=== PATIENT | female | born 1960 | race Caucasian/White ===

== ENCOUNTER → 2016-05-18 | Outpatient (CLI) | payer BC | END | disposition home or self-care (01) | LOC: LABWHC1 15:06 | PROVIDERS: ATTEND Internal Medicine Endocrinology, Diabetes & Metabolism | DX: E89.0 Postprocedural hypothyroidism (principal) | CPT/HCPCS: 36415; 84443 ==

== ENCOUNTER → 2016-07-14 | Outpatient (CLI) | payer BC ==
--- NOTE | 2016-07-17 09:43 | MM ---
Reason for exam: screening (asymptomatic). Last mammogram was performed 1 year ago. History: Patient is nulliparous. Family history of breast cancer in aunt at age 45. Cancelled Left Mammotome of the left breast, July 02, 2006. Benign US left CoreBiopsy of the left breast, June 11, 2006. Benign ultrasound-guided core biopsy of the left breast, October 26, 2003. Benign stereotactic core biopsy of the left breast, September 22, 2002. 2 core biopsies of the left breast. Taking hormonal contraceptives for 8 years beginning at age 41. Physical Findings: A clinical breast exam by your physician is recommended on an annual basis and results should be correlated with mammographic findings. MG Screening Mammo w CAD Bilateral CC and MLO view(s) were taken. Prior study comparison: July 14, 2015, bilateral MG screening mammo w CAD. May 11, 2014, bilateral MG screening mammo w CAD. May 08, 2013, bilateral digital screening mammo w/CAD. There are scattered fibroglandular densities. Previous mammotome biopsy in the left breast x 3. Asymmetric breast tissue in the left breast is stable. There is no discrete abnormality. ASSESSMENT: Benign, BI-RAD 2 RECOMMENDATION: Routine screening mammogram of both breasts in 1 year.
== END | disposition home or self-care (01) ==
LOC: RADMAMWWP 13:50
PROVIDERS: ATTEND Obstetrics & Gynecology
DX: Z12.31 Encounter for screening mammogram for malignant neoplasm of breast (principal)

== ENCOUNTER → 2017-08-17 | Outpatient (CLI) | payer BC ==
--- NOTE | 2017-08-20 10:16 | MM ---
Reason for exam: screening (asymptomatic). Last mammogram was performed 1 year and 1 month ago. History: Patient is nulliparous. Family history of breast cancer in aunt at age 45. Cancelled Left Mammotome of the left breast, July 02, 2006. Benign US left CoreBiopsy of the left breast, June 11, 2006. Benign ultrasound-guided core biopsy of the left breast, October 26, 2003. Benign stereotactic core biopsy of the left breast, September 22, 2002. 2 core biopsies of the left breast. Taking hormonal contraceptives for 8 years beginning at age 41. Physical Findings: A clinical breast exam by your physician is recommended on an annual basis and results should be correlated with mammographic findings. MG Screening Mammo w CAD Bilateral CC and MLO view(s) were taken. Prior study comparison: July 14, 2016, bilateral MG screening mammo w CAD. July 14, 2015, bilateral MG screening mammo w CAD. The breast tissue is heterogeneously dense. This may lower the sensitivity of mammography. Previous mammotome biopsy in the left breast. There is no discrete abnormality. No significant changes when compared with prior studies. ASSESSMENT: Negative, BI-RAD 1 RECOMMENDATION: Routine screening mammogram of both breasts in 1 year.
== END | disposition home or self-care (01) ==
LOC: RADMAMWWP 13:47
PROVIDERS: ATTEND Obstetrics & Gynecology
DX: Z12.31 Encounter for screening mammogram for malignant neoplasm of breast (principal); Z80.3 Family history of malignant neoplasm of breast
CPT/HCPCS: 77067

== ENCOUNTER → 2018-06-20 | Outpatient (CLI) | payer BC | END | disposition home or self-care (01) | LOC: LABWHC1 13:16 | PROVIDERS: ATTEND Obstetrics & Gynecology | DX: Z78.0 Asymptomatic menopausal state (principal) | CPT/HCPCS: 36415; 82670; 83001 ==

== ENCOUNTER → 2018-08-19 | Outpatient (CLI) | payer BC ==
--- NOTE | 2018-08-20 09:02 | MM ---
Reason for exam: screening (asymptomatic). Last mammogram was performed 1 year ago. History: Patient is postmenopausal and is nulliparous. Family history of breast cancer in aunt at age 45. Cancelled Left Mammotome of the left breast, July 02, 2006. Benign US left CoreBiopsy of the left breast, June 11, 2006. Benign ultrasound-guided core biopsy of the left breast, October 26, 2003. Benign stereotactic core biopsy of the left breast, September 22, 2002. 2 core biopsies of the left breast. Taking hormonal contraceptives for 16 years beginning at age 41. Physical Findings: A clinical breast exam by your physician is recommended on an annual basis and results should be correlated with mammographic findings. MG Screening Mammo w CAD Bilateral CC and MLO view(s) were taken. Prior study comparison: August 17, 2017, bilateral MG screening mammo w CAD. July 14, 2016, bilateral MG screening mammo w CAD. The breast tissue is heterogeneously dense. This may lower the sensitivity of mammography. There is no discrete abnormality. No significant changes when compared with prior studies. ASSESSMENT: Negative, BI-RAD 1 RECOMMENDATION: Routine screening mammogram of both breasts in 1 year.
== END | disposition home or self-care (01) ==
LOC: RADMAMWWP 13:15
PROVIDERS: ATTEND Obstetrics & Gynecology
DX: Z12.31 Encounter for screening mammogram for malignant neoplasm of breast (principal)
CPT/HCPCS: 77067

== ENCOUNTER → 2019-01-06 | Outpatient (CLI) | payer BC ==
--- NOTE | 2019-01-06 13:18 | US ---
EXAMINATION TYPE: US abdomen complete DATE OF EXAM: 01/06/2019 COMPARISON: NONE CLINICAL HISTORY: R10.11 abdominal pain. Very difficult and limited exam due to overlying bowel gas EXAM MEASUREMENTS: Liver Length: 14.7 cm Gallbladder Wall: 0.2 cm CBD: 0.4 cm Spleen: 6.9 cm Right Kidney: 9.9 x 4.2 x 4.7 cm Left Kidney: 10.4 x 5.2 x 4.9 cm Pancreas: Obscured by bowel gas Liver: There is increased echogenicity of the hepatic parenchyma with diminished visualization of th e portal triads most commonly relating to hepatic steatosis and limiting evaluation for underlying he patic masses. Gallbladder: Stone visualized measuring 1.7 cm Evidence for sonographic Zamarripa's sign: Yes CBD: wnl as visualized Spleen: Very limited visualization due to overlying bowel gas Right Kidney: No hydronephrosis or masses seen Left Kidney: No hydronephrosis or masses seen Upper IVC: wnl Abd Aorta: Proximal portion appears ectatic, however limited exam due to overlying bowel gas. Athero sclerotic changes The liver is heterogeneous. The intrahepatic portion of the IVC and proximal abdominal aorta are wit hin normal limits. Common bile duct is unremarkable. The visualized portions of the pancreas are ho mogenous. The spleen is unremarkable. Kidneys are symmetric and free of hydronephrosis. No renal l esions are seen. IMPRESSION: 1. Sonographic findings most commonly related to hepatic steatosis. Correlate with liver function quentin ts. 2. Cholelithiasis and positive sonographic Zamarripa sign. However no other sonographic evidence of acut e cholecystitis is seen.
== END | disposition home or self-care (01) ==
LOC: RADUSWWP 12:01
PROVIDERS: ATTEND Family Medicine
DX: K80.20 Calculus of gallbladder without cholecystitis without obstruction (principal)
CPT/HCPCS: 76700

== ENCOUNTER → 2019-02-07 | Outpatient (CLI) | payer BC ==
--- NOTE | 2019-02-09 09:44 | NM ---
EXAMINATION TYPE: NM hepatobiliary w EF DATE OF EXAM: 02/07/2019 COMPARISON: NONE INDICATION: R 10.811 TECHNIQUE: After the intravenous administration of 4.83 mCi Tc 99m Mebrofenin hepatobiliary scintigra phy is performed. Images were obtained immediately post injection. FINDINGS: There is prompt uptake and excretion of radiotracer by the liver. Extrahepatic ducts are identified at 7 minutes. The gallbladder is visualized within 12 minutes. Small bowel activity is noted within 18 minutes. At one hour 8 ounces of oral ensure plus is given to mimic CCK and gallbladder ejection fraction is c alculated at 89 %, which is in the normal range. (Normal >35% and <80%.). IMPRESSION: 1. Correlate for biliary hyperkinesia.
== END | disposition home or self-care (01) ==
LOC: RADNMMAIN 14:40
PROVIDERS: ATTEND Family Medicine
DX: R10.811 Right upper quadrant abdominal tenderness (principal)
CPT/HCPCS: 78226; A9537

== ENCOUNTER → 2019-10-13 | Outpatient (CLI) | payer BC ==
--- NOTE | 2019-10-14 10:05 | MM ---
Reason for exam: screening (asymptomatic). Last mammogram was performed 1 year and 2 months ago. History: Patient is postmenopausal and is nulliparous. Family history of breast cancer in aunt at age 45. Cancelled Left Mammotome of the left breast, July 02, 2006. Benign US left CoreBiopsy of the left breast, June 11, 2006. Benign ultrasound-guided core biopsy of the left breast, October 26, 2003. Benign stereotactic core biopsy of the left breast, September 22, 2002. 2 core biopsies of the left breast. Taking hormonal contraceptives for 16 years beginning at age 41. Physical Findings: A clinical breast exam by your physician is recommended on an annual basis and results should be correlated with mammographic findings. MG Screening Mammo w CAD Bilateral CC and MLO view(s) were taken. Prior study comparison: August 19, 2018, bilateral MG screening mammo w CAD. August 17, 2017, bilateral MG screening mammo w CAD. The breast tissue is heterogeneously dense. This may lower the sensitivity of mammography. No suspicious abnormality. Multiple left breast biopsy markers noted. No significant changes when compared with prior studies. ASSESSMENT: Benign, BI-RAD 2 RECOMMENDATION: Routine screening mammogram of both breasts in 1 year.
== END | disposition home or self-care (01) ==
LOC: RADMAMWWP 15:36
PROVIDERS: ATTEND Obstetrics & Gynecology
DX: Z80.3 Family history of malignant neoplasm of breast (principal)
CPT/HCPCS: 77067

== ENCOUNTER → 2020-10-13 | Outpatient (CLI) | payer BC ==
--- NOTE | 2020-10-15 15:04 | MM ---
Reason for exam: screening (asymptomatic). Last mammogram was performed 1 year ago. History: Patient is postmenopausal and is nulliparous. Family history of breast cancer in aunt at age 45. Cancelled Left Mammotome of the left breast, July 02, 2006. Benign US left CoreBiopsy of the left breast, June 11, 2006. Benign ultrasound-guided core biopsy of the left breast, October 26, 2003. Benign stereotactic core biopsy of the left breast, September 22, 2002. 2 core biopsies of the left breast. Took hormonal contraceptives for 16 years beginning at age 41. Taking other hormone beginning at age 58. Physical Findings: A clinical breast exam by your physician is recommended on an annual basis and results should be correlated with mammographic findings. MG Screening Mammo w CAD Bilateral CC and MLO view(s) were taken. Prior study comparison: October 13, 2019, bilateral MG screening mammo w CAD. August 19, 2018, bilateral MG screening mammo w CAD. The breast tissue is heterogeneously dense. This may lower the sensitivity of mammography. ASSESSMENT: Benign, BI-RAD 2 RECOMMENDATION: Routine screening mammogram of both breasts in 1 year.
== END | disposition home or self-care (01) ==
LOC: RADMAMWWP 13:40
PROVIDERS: ATTEND Obstetrics & Gynecology
DX: Z12.31 Encounter for screening mammogram for malignant neoplasm of breast (principal); Z78.0 Asymptomatic menopausal state; Z80.3 Family history of malignant neoplasm of breast
CPT/HCPCS: 77067

== ENCOUNTER → 2021-10-14 | Outpatient (CLI) | payer OTHER ==
--- NOTE | 2021-10-17 10:59 | MM ---
Reason for Exam: Screening (asymptomatic). Last screening mammogram was performed 12 month(s) ago. Patient History: Menarche at age 15. Patient has no children. Postmenopausal. Hormonal Contraceptives, starting at age 41 for 16 years. Currently using Estrogen and Progesterone, starting at age 58. Core Biopsy on the Left side. Core Biopsy on the Left side. 06/11/2006, Benign Core Biopsy on the left side. 10/26/2003, Benign Ultrasound-Guided Core Biopsy on the left side. 09/22/2002, Benign Stereotactic Core Biopsy on the left side. 07/02/2006, Cancelled Left Mammotome on the left side. Maternal aunt had breast cancer, age 45. Risk Values: Debby 5 year model risk: 2.1%. NCI Lifetime model risk: 11.2%. Prior Study Comparison: 08/19/2018 Bilateral Screening Mammogram, [facility]. 10/13/2019 Bilateral Screening Mammogram, [facility]. 10/13/2020 Bilateral Screening Mammogram, [facility]. Tissue Density: The breast tissue is heterogeneously dense. This may lower the sensitivity of mammography. Findings: Analyzed By CAD. There is no suspicious group of microcalcifications or new suspicious mass in either breast. Previous biopsy markers on the left noted. Overall Assessment: Benign, BI-RAD 2 Management: Screening Mammogram of both breasts in 1 year. A clinical breast exam by your physician is recommended on an annual basis and results should be correlated with mammographic findings. Electronically signed and approved by: Carson Shields M.D. Radiologis
== END | disposition home or self-care (01) ==
LOC: RADMAMWWP 12:46
PROVIDERS: ATTEND Obstetrics & Gynecology
DX: Z12.31 Encounter for screening mammogram for malignant neoplasm of breast (principal); Z78.0 Asymptomatic menopausal state; Z80.3 Family history of malignant neoplasm of breast
CPT/HCPCS: 77067

== ENCOUNTER 2022-02-23 09:13 | Day surgery (SDC) | payer OTHER ==
[2022-02-21 14:31] VITALS: BMI 28.3
[~2022-02-23 09:13] MED LIST: LACTATED RINGERS 1,000 ML IV SCH
[2022-02-23 10:54] VITALS: TEMP 98.4
[2022-02-23] MEDS ORDERED: PROPOFOL 10 MG/ML 20 ML VIAL IV ONE (11:18)
--- NOTE | 2022-02-23 11:19 | P.GSHP ---
History of Present Illness H&P Date: 02/23/22 Chief Complaint: Screening colonoscopy This a 7-year-old female who presents today for screening colonoscopy. Patient denies any significant GI complaints Past Medical History Past Medical History: GERD/Reflux, Hypertension, Osteoarthritis (OA), Thyroid Disorder Additional Past Medical History / Comment(s): MIGRAINES,OCCASIONAL CONSTIPATION , HEMORRHOIDS, HX OF HYPERTHYROID AND HAD RADIATION TX., ARTHRITIS IN HANDS AND SHOULDER, NECK AND BACK PAIN. JUST FINISHED RX FOR YEAST INFECTION History of Any Multi-Drug Resistant Organisms: None Reported Past Surgical History: Appendectomy, Back Surgery Additional Past Surgical History / Comment(s): LAPAROSCOPY, CERVICAL AND LOWER BACK SURGERY. COLONOSCOPY Past Anesthesia/Blood Transfusion Reactions: Postoperative Nausea & Vomiting (PONV) Smoking Status: Never smoker - Past Family History Sister(s) Family Medical History: Cancer Additional Family Medical History / Comment(s): MELANOMA Medications and Allergies Home Medications Medication Instructions Recorded Confirmed Type traMADol HCl [Ultram] 50 mg PO Q4H PRN 05/11/15 02/23/22 History Amitriptyline HCl [Elavil] 25 mg PO HS 02/21/22 02/23/22 History Bisoprolol-Hctz 2.5-6.25 mg [Ziac 1 tab PO DAILY 02/21/22 02/23/22 History 2.5-6.25 MG] Gabapentin 300 mg PO HS PRN 02/21/22 02/23/22 History Levothyroxine Sodium [Synthroid] 112 mcg PO DAILY 02/21/22 02/23/22 History Progesterone, Micronized 200 mg PO HS 02/21/22 02/23/22 History [Progesterone] estradioL [Estrace] 1 mg PO DAILY 02/21/22 02/23/22 History Allergies Allergy/AdvReac Type Severity Reaction Status Date / Time ENVIRONMENTAL ALLERGIES Allergy Unknown Unknown Uncoded 02/23/22 10:50 Surgical - Exam Vital Signs Temp Pulse Resp BP Pulse Ox 98.4 F 79 16 130/71 98 02/23/22 10:54 02/23/22 10:54 02/23/22 10:54 02/23/22 10:54 02/23/22 10:54 - General well developed, well nourished, no distress - Eyes PERRL - ENT normal pinna - Neck no masses - Respiratory normal expansion - Cardiovascular Rhythm: regular - Abdomen Abdomen: soft, non tender Assessment and Plan Assessment: We'll perform screening colonoscopy
--- NOTE | 2022-02-23 11:37 | P.OP ---
Date of Procedure: 02/23/22 Preoperative Diagnosis: Screening colonoscopy Postoperative Diagnosis: Internal hemorrhoids Procedure(s) Performed: Colonoscopy Anesthesia: MAC Surgeon: Jon Shah Pathology: none sent Condition: stable Disposition: PACU Description of Procedure: The patient's placed on the endoscopy table lateral position she received IV sedation. Digital rectal exam was performed. This revealed external hemorrhoids. Flexible colonoscope was then placed patient anus passed throughout the colon. The cecal valve was visualized. The cecum, ascending and transverse colon appeared normal. The descending and sigmoid colon appeared normal. Scope was then brought back the rectum this was normal. Scope withdr awn for anus and internal and external hemorrhoids are noted.
[2022-02-23 11:54] VITALS: BP 124/68; PULSE 72; RESP 17
== END 2022-02-23 12:20 | disposition home or self-care (01) ==
LOC: ORWHC2ENDO 09:13
PROVIDERS: ATTEND Surgery
DX: Z12.11 Encounter for screening for malignant neoplasm of colon (principal); K64.4 Residual hemorrhoidal skin tags; K64.8 Other hemorrhoids; E03.9 Hypothyroidism, unspecified; K21.9 Gastro-esophageal reflux disease without esophagitis; I10 Essential (primary) hypertension; M19.90 Unspecified osteoarthritis, unspecified site; G43.909 Migraine, unspecified, not intractable, without status migrainosus; Z87.19 Personal history of other diseases of the digestive system; Z90.49 Acquired absence of other specified parts of digestive tract; Z98.890 Other specified postprocedural states; Z80.7 Family history of other malignant neoplasms of lymphoid, hematopoietic and related tissues; Z81.1 Family history of alcohol abuse and dependence; Z79.899 Other long term (current) drug therapy
CPT/HCPCS: 45378; J2704

== ENCOUNTER → 2022-12-11 | Outpatient (CLI) | payer BC ==
--- NOTE | 2022-12-12 10:34 | BD ---
EXAMINATION TYPE: Axial Bone Density DATE OF EXAM: 12/11/2022 CLINICAL HISTORY: 62 years old Female. ICD-10 CODE: N95.1 POST MENOPAUSAL Height: 64 Weight: 150.5 FRAX RISK QUESTIONS: Alcohol (3 or more units per day): no Family History (Parent hip fracture): mother Glucocorticoids (More than 3mos): no History of Fracture in Adulthood: no Secondary Osteoporosis: 1. Type 1 Diabetes: no 2. Hyperthyroidism: no 3. Menopause before 45: no 4. Malnutrition: no 5. Chronic liver disease: no Rheumatoid Arthritis: no Current Tobacco Use: no RISK FACTORS HISTORY OF: Hip Fracture (Right/Left): no Spine Fracture: no History of Wrist Fracture: no Surgery to Spine/Hip(right/left)/Wrist (right/left): Laminectomy LS-Spine When: Age 46 Family History of Osteoporosis: no Active: yes Diet low in dairy products/other sources of calcium: yes Postmenopausal woman: yes Take estrogen and/or progesterone medications: yes How long: past 3 years Lost more than 2 inches in height since high school: no Frequent falls: no Poor Health: no Hyperparathyroidism: yes, thyroid radiation age 41 Adrenal Insufficiency: no MEDICATIONS: Prednisone or other steroids: no Thyroid Medications: Synthroid How Long: since age 41 Osteoporosis Medications: no Additional Medications: BP Meds, HRT, magnesium, Additional History: EXAM MEASUREMENTS: Bone mineral densitometry was performed using the [employer]. Bone mineral density about the R hip (g/cm2): 1.104 Bone mineral density about the L hip (g/cm2): 1.099 T Score values are as follows: -----R Neck: -0.1 -----L Neck: 0.4 -----R Total: 0.8 -----L Total: 0.7 Z Score values are as follows: -----R Neck: 1.1 -----L Neck: 1.6 -----R Total: 1.7 -----L Total: 1.6 Baseline study Bone mineral density about the L Wrist (g/cm2): 0.657 T Score values are as follows: -----Dist. R+U: -0.6 -----Prox. R+U: 0.0 -----Radius total: -0.3 Z Score values are as follows: -----Dist. R+U: 0.4 -----Prox. R+U: 1.0 -----Radius total: 0.7 Baseline study FRAX%s: The graph provided illustrates a 13.0% chance for a major osteoporotic fx and a 0.2% chance f or the hips probability for fx in 10 years time. IMPRESSION: Normal (Values between +1 and -1 indicate normal bone mass). Consider repeating this study in 5 year s or sooner if there is some new clinical indication. NOTE: T-SCORE=SD OF THE YOUNG ADULT MEAN.
--- NOTE | 2022-12-12 20:45 | MM ---
Reason for Exam: Screening (asymptomatic). Last mammogram was performed 1 year(s) and 1 month(s) ago. Patient History: Menarche at age 15. Patient has no children. Postmenopausal. Hormonal Contraceptives, starting at age 41 for 16 years. Currently using Estrogen and Progesterone, starting at age 58. Core Biopsy on the Left side. Core Biopsy on the Left side. 06/11/2006, Benign Core Biopsy on the left side. 10/26/2003, Benign Ultrasound-Guided Core Biopsy on the left side. 09/22/2002, Benign Stereotactic Core Biopsy on the left side. 07/02/2006, Cancelled Left Mammotome on the left side. Maternal aunt had breast cancer, age 45. Risk Values: Debby 5 year model risk: 2.3%. NCI Lifetime model risk: 10.6%. Prior Study Comparison: 10/13/2019 Bilateral Screening Mammogram, [facility]. 10/13/2020 Bilateral Screening Mammogram, [facility]. 10/14/2021 Bilateral MG screening mammo w CAD, [facility]. Tissue Density: The breast tissue is heterogeneously dense. This may lower the sensitivity of mammography. Findings: Analyzed By CAD. 3 microclips on the left from prior biopsies. Greater degree of breast tissue density anterior to middle depth left breast remains unchanged. There is no suspicious group of microcalcifications or new suspicious mass in either breast. Overall Assessment: Benign, BI-RAD 2 Management: Screening Mammogram of both breasts in 1 year. . Patient should continue monthly self-breast exams. A clinical breast exam by your physician is recommended on an annual basis. This exam should not preclude additional follow-up of suspicious palpable abnormalities. Note on Debby scores and lifetime risk: 1. A Debby score greater than 3% is considered moderate risk. If this is the case, consider specialist referral to assess eligibility for a risk reducing agent. 2. If overall lifetime risk for the development of breast cancer is 20% or higher, the patient may qualify for future screening with alternating mammogram and breast MRI. Electronically signed and approved by: Allie Calhoun M.D. Radiologist
== END | disposition home or self-care (01) ==
LOC: RADMAMWWP 15:44
PROVIDERS: ATTEND Obstetrics & Gynecology
DX: Z12.31 Encounter for screening mammogram for malignant neoplasm of breast (principal); Z78.0 Asymptomatic menopausal state; Z80.3 Family history of malignant neoplasm of breast
CPT/HCPCS: 77067; 77080

== ENCOUNTER → 2023-12-13 | Outpatient (CLI) | payer BC ==
--- NOTE | 2024-01-08 11:52 | MM ---
Reason for Exam: Screening (asymptomatic). Last mammogram was performed 1 year(s) and 1 month(s) ago. Patient History: Menarche at age 15. Patient has no children. Postmenopausal. Hormonal Contraceptives, starting at age 41 for 16 years. Currently using Estrogen and Progesterone, starting at age 58. Core Biopsy on the Left side. Core Biopsy on the Left side. 06/11/2006, Benign Core Biopsy on the left side. 10/26/2003, Benign Ultrasound-Guided Core Biopsy on the left side. 09/22/2002, Benign Stereotactic Core Biopsy on the left side. 07/02/2006, Cancelled Left Mammotome on the left side. Maternal aunt had breast cancer, age 45. Risk Values: Sophia 5 year model risk: 2.3%. NCI Lifetime model risk: 10.3%. Prior Study Comparison: 10/13/2020 Bilateral Screening Mammogram, [facility]. 10/14/2021 Bilateral MG screening mammo w CAD, [facility]. 12/11/2022 Bilateral MG screening mammo w CAD, [facility]. Tissue Density: There are scattered areas of fibroglandular density. Findings: Analyzed By CAD. 3 microclips in the left breast from prior biopsies. Areas of bilateral asymmetric density greater on the left side remain unchanged from prior exams. No significant change from prior studies. Overall Assessment: Benign, BI-RAD 2 Management: Screening Mammogram of both breasts in 1 year. 1. Screening Mammogram Bilateral in 1 Year . 2. Patient should continue monthly self-breast exams. A clinical breast exam by your physician is recommended on an annual basis. 3. This exam should not preclude additional follow-up of suspicious palpable abnormalities. NOTE ON SOPHIA SCORES AND LIFETIME RISK: 1. A Sophia score greater than 3% is considered moderate risk. If this is the case, consider specialist referral to assess eligibility for a risk reducing agent. 2. If overall lifetime risk for the development of breast cancer is 20% or higher, the patient may qualify for future screening with alternating mammogram and breast MRI. Electronically signed and approved by: Allie Calhoun M.D. Radiologist
== END | disposition home or self-care (01) ==
LOC: RADMAMWWP 10:32
PROVIDERS: ATTEND Obstetrics & Gynecology
DX: Z12.31 Encounter for screening mammogram for malignant neoplasm of breast (principal); R92.323 Mammographic fibroglandular density, bilateral breasts; Z78.0 Asymptomatic menopausal state; Z80.3 Family history of malignant neoplasm of breast
CPT/HCPCS: 77067

== ENCOUNTER → 2024-06-02 | Outpatient (CLI) | payer BC ==
--- NOTE | 2024-06-02 15:21 | XR ---
EXAMINATION TYPE: XR chest 2V DATE OF EXAM: 06/02/2024 3:15 PM COMPARISON: Chest radiographs from TECHNIQUE: XR chest 2V Frontal and lateral views of the chest. CLINICAL INDICATION:Female, 63 years old with history of R05.2; FINDINGS: Lungs/Pleura: There is no evidence of pleural effusion, focal consolidation, or pneumothorax. Pulmonary vascularity: Unremarkable. Heart/mediastinum: Cardiomediastinal silhouette is unremarkable. Musculoskeletal: No acute osseous pathology. Other findings: Gas-filled large hiatal hernia identified. IMPRESSION: 1. No acute cardiopulmonary disease/process. 2. Large hiatal hernia. [facility], , 06/02/2024 3:18 PM
== END | disposition home or self-care (01) ==
LOC: RADXRMAIN 15:00
PROVIDERS: ATTEND Family Medicine
DX: K44.9 Diaphragmatic hernia without obstruction or gangrene (principal); R05.2 Subacute cough
CPT/HCPCS: 71046

== ENCOUNTER 2024-06-10 02:02 | Emergency (ER) | payer BC ==
--- NOTE | 2024-06-10 02:54 | ED ---
General Adult HPI - General Chief complaint: Abdominal Pain Stated complaint: unable to swallow Time Seen by Provider: 06/10/24 02:07 Source: patient, RN notes reviewed, old records reviewed Mode of arrival: ambulatory Limitations: no limitations - History of Present Illness Initial comments: 63-year-old female presenting with chief complaint esophageal spasm. Patient states she has had this in the past although it did not last as long as it is tonight. She states this began in the afternoon yesterday. She has been unable to swallow her secretions since that time. She states it began after eating some corn beef. She has not had a recent scope. - Related Data Home Medications Medication Instructions Recorded Confirmed traMADol HCl [Ultram] 50 mg PO Q4H PRN 05/11/15 07/17/22 Amitriptyline HCl [Elavil] 25 mg PO HS 02/21/22 07/17/22 Bisoprolol-Hctz 2.5-6.25 mg [Ziac 1 tab PO DAILY 02/21/22 07/17/22 2.5-6.25 MG] Gabapentin 300 mg PO HS PRN 02/21/22 07/17/22 Levothyroxine Sodium [Synthroid] 112 mcg PO DAILY 02/21/22 07/17/22 Progesterone, Micronized 200 mg PO HS 02/21/22 07/17/22 [Progesterone] estradioL [Estrace] 1 mg PO DAILY 02/21/22 07/17/22 Unk Magnesium 1 tab PO HS 07/11/22 07/17/22 Unk B Complex 1 tab PO DAILY 07/11/22 07/17/22 Unk Probiotic 1 tab PO DAILY 07/11/22 07/17/22 Previous Rx's Medication Instructions Recorded Acetaminophen Tab [Tylenol] 650 mg PO Q6H #30 tab 07/17/22 Docusate [Colace] 100 mg PO BID #20 capsule 07/17/22 Ibuprofen [Motrin] 600 mg PO Q6HR PRN #40 tab 07/17/22 oxyCODONE HCL [OxyIR] 5 mg PO Q6H PRN 3 Days #10 tab 07/17/22 Allergies Allergy/AdvReac Type Severity Reaction Status Date / Time ENVIRONMENTAL ALLERGIES Allergy Mild Unknown Uncoded 06/10/24 02:32 Review of Systems ROS Statement: Those systems with pertinent positive or pertinent negative responses have been documented in the HPI. ROS Other: All systems not noted in ROS Statement are negative. Past Medical History Past Medical History: GERD/Reflux, Hypertension, Osteoarthritis (OA), Thyroid Disorder Additional Past Medical History / Comment(s): MIGRAINES,OCCASIONAL CONSTIPATION , HEMORRHOIDS, HX OF HYPERTHYROID AND HAD RADIATION TX., ARTHRITIS IN HANDS AND SHOULDER, NECK AND BACK PAIN. mild yeast rash to buttcoks. uses cream. upper abd pain gall bladder related. 2-3 weeks. History of Any Multi-Drug Resistant Organisms: None Reported Past Surgical History: Appendectomy, Back Surgery, Joint Replacement Additional Past Surgical History / Comment(s): LAPAROSCOPY, CERVICAL AND LOWER BACK SURGERY. COLONOSCOPY. lt TKA Past Anesthesia/Blood Transfusion Reactions: Postoperative Nausea & Vomiting (PONV) Additional Past Anesthesia/Blood Transfusion Reaction / Comment(s): no blood tranfusions Past Psychological History: No Psychological Hx Reported Smoking Status: Never smoker Past Alcohol Use History: Occasional Past Drug Use History: None Reported - Past Family History Father Family Medical History: Coronary Artery Disease (CAD) Additional Family Medical History / Comment(s): PVD Mother Family Medical History: COPD Sister(s) Family Medical History: Cancer Additional Family Medical History / Comment(s): MELANOMA General Exam Limitations: no limitations General appearance: alert, in no apparent distress Head exam: Present: atraumatic, normocephalic Eye exam: Present: normal appearance, PERRL ENT exam: Present: normal exam Neck exam: Present: normal inspection. Absent: tenderness, meningismus Respiratory exam: Present: normal lung sounds bilaterally. Absent: respiratory distress, wheezes Cardiovascular Exam: Present: regular rate, normal rhythm GI/Abdominal exam: Present: soft. Absent: distended, tenderness, guarding Extremities exam: Present: normal inspection, normal capillary refill Neurological exam: Present: alert, oriented X3 Psychiatric exam: Present: normal affect, normal mood Course Vital Signs 06/10/24 06/10/24 02:27 04:32 Temperature 98.9 F 98.3 F Pulse Rate 103 H 79 Respiratory 18 14 Rate Blood Pressure 132/90 128/82 O2 Sat by Pulse 99 99 Oximetry Medical Decision Making - Medical Decision Making Was pt. sent in by a medical professional or institution (, PA, THEATRE MANAGER, urgent care, hospital, or intermediate...) When possible be specific @ -No Did you speak to anyone other than the patient for history (EMS, parent, family, police, friend...)? What history was obtained from this source @ -No Did you review nursing and triage notes (agree or disagree)? Why? @ -I reviewed and agree with nursing and triage notes Were old charts reviewed (outside hosp., previous admission, EMS record, old EKG, old radiological studies, urgent care reports/EKG's, intermediate records)? Report findings @ -No old charts were reviewed Differential Diagnosis: Esophageal food impaction, esophageal stricture, esophageal mass EKG interpreted by me (3pts min.). @Sinus rhythm rate of 79, DC interval 161, QRS duration 82, QTc 411 X-rays interpreted by me (1pt min.). @ -None done CT interpreted by me (1pt min.). @ -None done U/S interpreted by me (1pt. min.). @ -None done What testing was considered but not performed or refused? (CT, X-rays, U/S, labs)? Why? @ -None What meds were considered but not given or refused? Why? @ -None Did you discuss the management of the patient with other professionals (professionals i.e. Dr., PA, THEATRE MANAGER, lab, RT, psych nurse, social worker clinical, receptionist telephone operator, teacher, president and chief commercial officer, sample case porter)? Give summary @Discussed that with Delmy Leonard regarding transfer for GI service. Accepting physician Dr. Rivero, and Dr. Fagan Was smoking cessation discussed for >3mins.? @ -No Was critical care preformed (if so, how long)? @ -No Were there social determinants of health that impacted care today? How? (Homelessness, low income, unemployed, alcoholism, drug addiction, transportation, low edu. Level, literacy, decrease access to med. care, skilled nursing, rehab)? @ -No Was there de-escalation of care discussed even if they declined (Discuss DNR or withdrawal of care, Hospice)? DNR status @ -No What co-morbidities impacted this encounter? (DM, HTN, Smoking, COPD, CAD, Cancer, CVA, ARF, Chemo, Hep., AIDS, mental health diagnosis, sleep apnea, morbid obesity)? @ -None Was patient admitted / discharged? Hospital course, mention meds given and route, prescriptions, significant lab abnormalities, going to OR and other pertinent info. @63-year-old female presenting with unable to swallow her saliva and suspected esophageal food impaction. Patient was eating both a hamburger and corn beef. Patient given Valium, glucagon, IV fluids and Protonix. Attempts were made to drink carbonated beverage. After several hours the patient is unable to relieve the impaction. She will require GI evaluation. Patient wishes to drive by private vehicle to [facility]. Undiagnosed new problem with uncertain prognosis? @ -No Drug Therapy requiring intensive monitoring for toxicity (Heparin, Nitro, Insulin, Cardizem)? @ -No Were any procedures done? @ -No Diagnosis/symptom? @ -Esophageal food impaction Acute, or Chronic, or Acute on Chronic? @ -[Acute Uncomplicated (without systemic symptoms) or Complicated (systemic symptoms)? @ -Default Side effects of treatment? @ -No Exacerbation, Progression, or Severe Exacerbation? @ -No Poses a threat to life or bodily function? How? (Chest pain, USA, AR, pneumonia, PE, COPD, DKA, ARF, appy, cholecystitis, CVA, Diverticulitis, Homicidal, Suicidal, threat to staff... and all critical care pts) @ -No - Lab Data Result diagrams: 06/10/24 03:31 06/10/24 03:31 Lab Results 06/10/24 06/10/24 06/10/24 Range/Units 03:31 03:31 03:31 WBC 11.6 H (3.8-10.6) k/uL RBC 4.40 (3.80-5.40) m/uL Hgb 13.5 (11.4-16.0) gm/dL Hct 40.8 (34.0-46.0) % MCV 92.6 (80.0-100.0) fL MCH 30.6 (25.0-35.0) pg MCHC 33.0 (31.0-37.0) g/dL RDW 12.1 (11.5-15.5) % Plt Count 218 (150-450) k/uL MPV 6.7 Neutrophils % 67 % Lymphocytes % 22 % Monocytes % 6 % Eosinophils % 3 % Basophils % 1 % Neutrophils # 7.7 (1.3-7.7) k/uL Lymphocytes # 2.6 (1.0-4.8) k/uL Monocytes # 0.7 (0-1.0) k/uL Eosinophils # 0.4 (0-0.7) k/uL Basophils # 0.1 (0-0.2) k/uL PT 10.2 (10.0-12.5) sec INR 0.9 (<1.2) APTT 23.3 (22.0-30.0) sec Sodium 140 (137-145) mmol/L Potassium 3.5 (3.5-5.1) mmol/L Chloride 99 (98-107) mmol/L Carbon Dioxide 33 H (22-30) mmol/L Anion Gap 8 mmol/L BUN 18 H (7-17) mg/dL Creatinine 0.86 (0.52-1.04) mg/dL Est GFR (CKD-EPI)AfAm 84 (>60 ml/min/1.73 sqM) Est GFR (CKD-EPI)NonAf 73 (>60 ml/min/1.73 sqM) Glucose 111 H (74-99) mg/dL Calcium 9.7 (8.4-10.2) mg/dL Total Bilirubin 0.8 (0.2-1.3) mg/dL AST 25 (14-36) U/L ALT 20 (4-34) U/L Alkaline Phosphatase 73 (38-126) U/L Troponin I (0.000-0.034) ng/mL Total Protein 7.3 (6.3-8.2) g/dL Albumin 4.1 (3.5-5.0) g/dL Lipase 732 H (23-300) U/L 06/10/24 Range/Units 03:31 WBC (3.8-10.6) k/uL RBC (3.80-5.40) m/uL Hgb (11.4-16.0) gm/dL Hct (34.0-46.0) % MCV (80.0-100.0) fL MCH (25.0-35.0) pg MCHC (31.0-37.0) g/dL RDW (11.5-15.5) % Plt Count (150-450) k/uL MPV Neutrophils % % Lymphocytes % % Monocytes % % Eosinophils % % Basophils % % Neutrophils # (1.3-7.7) k/uL Lymphocytes # (1.0-4.8) k/uL Monocytes # (0-1.0) k/uL Eosinophils # (0-0.7) k/uL Basophils # (0-0.2) k/uL PT (10.0-12.5) sec INR (<1.2) APTT (22.0-30.0) sec Sodium (137-145) mmol/L Potassium (3.5-5.1) mmol/L Chloride (98-107) mmol/L Carbon Dioxide (22-30) mmol/L Anion Gap mmol/L BUN (7-17) mg/dL Creatinine (0.52-1.04) mg/dL Est GFR (CKD-EPI)AfAm (>60 ml/min/1.73 sqM) Est GFR (CKD-EPI)NonAf (>60 ml/min/1.73 sqM) Glucose (74-99) mg/dL Calcium (8.4-10.2) mg/dL Total Bilirubin (0.2-1.3) mg/dL AST (14-36) U/L ALT (4-34) U/L Alkaline Phosphatase (38-126) U/L Troponin I <0.012 (0.000-0.034) ng/mL Total Protein (6.3-8.2) g/dL Albumin (3.5-5.0) g/dL Lipase (23-300) U/L Disposition Clinical Impression: Esophageal obstruction due to food impaction Disposition: OTHER INSTITUTION NOT DEFINED Condition: Stable Instructions (If sedation given, give patient instructions): Esophageal Foreign Body (ED) Is patient prescribed a controlled substance at d/c from ED?: No Referrals: Miki Messina MD [Primary Care Provider] - 1-2 days Marina Santiago MD [STAFF PHYSICIAN] - 1-2 days Time of Disposition: 05:28 - Out of Hospital Transfer - Req. Specs Out of Hospital Transfer - Requested Specifics: Other Emergency Center (Transfer to [facility])
[2024-06-10] MEDS: PANTOPRAZOLE 40 MG/10 ML VIAL IVP STA (03:41)
[2024-06-10] MEDS: GLUCAGON 1 MG/ML VIAL IVP STA (03:49)
[2024-06-10] MEDS: SODIUM CHLORIDE 0.9% 500 ML 500 ML IV STA (03:59)
[2024-06-10 04:08] LABS: Basophils # (A) 0.1 k/uL (0-0.2); Basophils % (A) 1 %; Eosinophils # (A) 0.4 k/uL (0-0.7); Eosinophils % (A) 3 %; HCT 40.8 % (34.0-46.0); HGB 13.5 gm/dL (11.4-16.0); Lymphocytes # (A) 2.6 k/uL (1.0-4.8); Lymphocytes % (A) 22 %; MCH 30.6 pg (25.0-35.0); MCV 92.6 fL (80.0-100.0); Mean Platelet Volume 6.7; Monocytes # (A) 0.7 k/uL (0-1.0); Monocytes % (A) 6 %; Neutrophils # (A) 7.7 k/uL (1.3-7.7); Neutrophils % (A) 67 %; Platelet Count 218 k/uL (150-450); RDW 12.1 % (11.5-15.5); WBC 11.6 k/uL (3.8-10.6)
[2024-06-10 04:23] LABS: ALT 20 U/L (4-34); AST 25 U/L (14-36); African American GFR (CKD) 84 (>60 ml/min/1.73 sqM); Albumin 4.1 g/dL (3.5-5.0); Alkaline Phosphatase 73 U/L (38-126); Anion Gap 8 mmol/L; Blood Urea Nitrogen 18 mg/dL (7-17); Calcium 9.7 mg/dL (8.4-10.2); Carbon Dioxide 33 mmol/L (22-30); Chloride 99 mmol/L (98-107); Glucose 111 mg/dL (74-99); Lipase 732 U/L (23-300); Non-African American GFR(CKD) 73 (>60 ml/min/1.73 sqM); Potassium 3.5 mmol/L (3.5-5.1); Sodium 140 mmol/L (137-145); Total Bilirubin 0.8 mg/dL (0.2-1.3); Total Protein 7.3 g/dL (6.3-8.2)
[2024-06-10 04:38] VITALS: RESP 14
[2024-06-10 05:05] LABS: INR 0.9 (<1.2); Partial Thromboplastin Time 23.3 sec (22.0-30.0); Prothrombin Time 10.2 sec (10.0-12.5)
[2024-06-10 06:48] VITALS: BP 122/76; PULSE 77; TEMP 97.7
== END 2024-06-10 07:31 | disposition other institution (70) ==
LOC: EC 02:02
DX: T18.128A Food in esophagus causing other injury, initial encounter (principal); Z88.8 Allergy status to other drugs, medicaments and biological substances; W44.F3XA Food entering into or through a natural orifice, initial encounter
CPT/HCPCS: 36415; 93005; 80053; 83690; 84484; 85025; 85610; 85730; 99285; 96374; 96375 ×2; 96361 ×2; J1610; J3360; J2470